=== PATIENT | male | born 1970 | race Caucasian/White ===

== ENCOUNTER → 2017-12-24 | Outpatient (CLI) | payer OTHER ==
[~2017-12-24] MED LIST: IOPAMIDOL (ISOVUE 370) 100 ML BTL IV ONE
== END ==
LOC: FIMAGING 13:51
PROVIDERS: ATTEND Internal Medicine Cardiovascular Disease
DX: I51.7 Cardiomegaly (principal); Q25.6 Stenosis of pulmonary artery; I28.8 Other diseases of pulmonary vessels
CPT/HCPCS: Q9967

== ENCOUNTER 2018-08-02 12:31 | Inpatient (IN) | payer OTHER ==
[2018-08-02] MEDS ORDERED: NS 1,000 ML IV ONE (12:38)
[2018-08-02] MEDS ORDERED: FAMOTIDINE 20 MG TAB PO ONE (12:38)
[2018-08-02] MEDS ORDERED: diphenhydrAMINE 25 MG CAP PO ONE ×2 (12:38→13:01)
[2018-08-02] MEDS ORDERED: DIAZEPAM 5 MG TAB PO ONE (12:38)
[2018-08-02] MEDS ORDERED: ASPIRIN EC 325 MG TAB PO ONE ×2 (12:38→13:01)
[2018-08-02] MEDS ORDERED: FAMOTIDINE 20 MG TAB ONE (13:01)
[2018-08-02] MEDS ORDERED: DIAZEPAM 5 MG TAB ONE (13:02)
[2018-08-02 13:30] LABS: PLATELET COUNT 184 10^3/uL (150-400)
[2018-08-02 13:41] LABS: INR 1.1 (0.83-1.16); PROTIME(PATIENT) 14.4 SEC (12.0-15.0)
[2018-08-02] MEDS ORDERED: fentaNYL 100 MCG/2 ML INJ ONE ×2 (13:43→15:12)
[2018-08-02] MEDS ORDERED: LIDOCAINE 1% 300 MG/30 ML SDV ONE (13:43)
[2018-08-02] MEDS ORDERED: MIDAZOLAM 2 MG/2 ML VIAL ONE ×3 (13:43→15:11)
[2018-08-02] MEDS ORDERED: VERAPAMIL 5 MG/2 ML VIAL ONE (13:44)
[2018-08-02] MEDS ORDERED: IOPAMIDOL (ISOVUE-370) 150 ML BTL IV ONE (13:44)
[2018-08-02] MEDS ORDERED: HEPARIN 10,000 UNIT/10 ML MDV (1,000 UNIT/ML) ONE (13:44)
--- NOTE | 2018-08-02 14:14 | PDGENHP ---
History & Physical Chief Complaint: I am ready to have my heart surgery History of Present Illness: 48 year old patient with severe PI and adult congenital heart disease with severe PI and dilation of the pulmonary artery precluding a transcatheter valve. Pertinent Past, Social, Family History: Pt is with young children. He does not smoke or abuse alcohol. Relevant Physical Exam: Regular rate rhythm and loud systolic and diasolic murmur. Lungs clear to auscultation. Extremities warm dry and well perfused. No cyanosis clubbing or edema. Cardiorespiratory Assessment: Please see above.
--- NOTE | 2018-08-02 14:15 | PDPROPOC ---
Sedation Plan of Care Sedation Plan of Care: vital signs stable, mental status noted, patient educated of risks, benefits, alternatives, patient can tolerate sedation ASA Classification: ASA 3 Planned drugs: fentanyl, midazolam Mallampati Score: Class 3 Mallampati Reference Image: Patient passed 3-3-2 rule?: Yes
--- NOTE | 2018-08-02 14:20 | PDDXCAT ---
Diagnostic Cath Note - . Date: 08/02/18 Airplane Electrician: Maria Isabel Indication: other (severe PI, adult congenital heart disease) - Procedure Access: right groin Procedure: coronary angiography, right heart catheterization, other (coronary catheterization, and ) - Materials Left Heart Cath size: 5F Left Heart Cath materials: JL4.0, JR4.0, pigtail Right Heart Cath size: 7F - Findings-Left Heart Catheterization LM: The left main is 8mm in size and trifurcates into a LAD, Circumflex and Ramus system. LAD: The left anterior descending is 3.5mm in size. There is no evidence of flow limiting disease. There is ELAINE III flow. LCX: The circumflex is 3mm in size. There is no evidence of coronary disease, dissection or thrombus. There is ELAINE III flow. RCA: The right coronary artery is 4mm in size and the dominant vessel. There is no evidence of atherosclerosis. THere is ELAINE III flow throughout Ramus: The ramus is 2mm in size. There is no flow limiting disease. There is ELAINE III flow. - Findings-Right Heart Catheterization RA: RV: PA: AO: 113//91 Complications: NONE Estimated blood loss: <50ml Closure method: Angioseal Assessment: The patient has a normal right dominant coronary system. The patient has moderate pulmonary hypertension that was unresponsive to a ramped dose vasodilator challenge with Adenosine at a max dose of 250mcg/kg/min. We were unable to perform left heart catheterization secondary to radial artery spasm so that procedure was abandoned. Theses results have been communicated to Dr. Li. Plan: The patient should be able to proceed with his pulmonic valve replacement. Intervention: NONE
[2018-08-02] MEDS ORDERED: ADENOSINE 90 MG/30 ML VIAL IV ONE ×2 (14:42→14:49)
[2018-08-02] MEDS ORDERED: ETOMIDATE 40 MG/20 ML INJ ONE (15:13)
[2018-08-02] MEDS ORDERED: ONDANSETRON 4 MG/2 ML VIAL IVP PRN (15:43)
[2018-08-02] MEDS ORDERED: OXYCODONE/APAP 5/325 TAB PO PRN (15:43)
[2018-08-02] MEDS ORDERED: NITROGLYCERIN 0.4 MG BTL SL PRN (15:43)
[2018-08-02] MEDS ORDERED: ATROPINE SULFATE 1 MG/10 ML SYR IVP PRN (15:43)
[2018-08-02] MEDS ORDERED: HYDROCODONE/APAP 5/325 TAB PO PRN (15:43)
--- NOTE | 2018-08-02 19:05 | PDGENHP ---
History and Physical - Chief Complaint complications of congenital heart disease - History of Present Illness 48 yo male with a hx of congenital pulmonic valve stenosis s/p repair at and repeat intervention at age 3, re-evaluated in November 2017 for atrial flutter and found to have severe PI (regurgitant fraction 47%) assoc with rt heart enlargement, moderate PA dilatation, moderate PHTN, mild biventricular systolic dysfx, mild to moderate TR, mild MR and mild AI. PI felt to be the instigating abnormality and referred for open PVR after determined to have unsuitable anatomy for a catheter based valve replacement. Admitted today to complete surgical risk stratification and cleared of CAD or prohibitive right heart pressures. Sinus rhythm was restored with DC CVSN (and beta blockade) and he has returned to his sedentary lifestyle without perceivable limitations or breathlessness. Is prone to mild ankle swelling with prolonged inactivity and has had a few bouts of palpitations, but not the pronounced racing like when he was in flutter. No wt gain, orthopnea, CPs, or presyncope. Eliquis for a [id number]-DDBm score of 2 has been well tolerated. Last dose 07/28. Bridged with Lovenox thru yest morning. History Information - Allergies/Home Medication List Allergies/Adverse Reactions: erythromycin base [From Erythrocin] Allergy (Verified 08/02/18 13:33) Other-Enter Comments Penicillins Allergy (Verified 08/02/18 20:28) Hives Home Medications: Apixaban [Eliquis] 5 mg PO BID 07/28/18 [Last Taken 07/28/18 20:00] Ibuprofen [Motrin (*)] 200 mg PO DAILY PRN 07/28/18 [Last Taken Unknown] Nebivolol HCl [Bystolic 5 mg (*)] 5 mg PO DAILY 07/28/18 [Last Taken 08/01/18 20 :00] Enoxaparin [Lovenox 100 MG (*)] 100 mg SQ Q12H 08/02/18 [Last Taken 08/01/18 08: 00] I have personally reviewed and updated: medical history, social history, surgical history - Past Medical History hypertension, liver disease ("scarring" s/p Rx for hep C), migraines, SVT ( atrial fib/flutter) Additional medical history: obesity. alopecia areata. 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 chronic venous insufficiency with mild dependent edema. sleep apnea suspected - Surgical History Additional surgical history: rt thoracotomy for pulmonic stenosis surgery 1967, [place], no records. 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, account executive software sales Review of Systems Review of Systems: ROS: 10pt was reviewed & negative except for what was stated in HPI & below Physical Exam Physical Exam: Temp Pulse Resp BP Pulse Ox 36.6 C 57 L 14 142/77 H 97 08/02/18 18:05 08/02/18 18:05 08/02/18 18:05 08/02/18 18:05 08/02/18 18:05 Constitutional: no apparent distress, appears nourished Eyes: anicteric sclera, other (PER) Ears, Nose, Mouth, Throat: moist mucous membranes, hearing normal, other (no visible dental disrepair) Cardiovascular: regular rate and rhythym, diastolic murmur, other (wide median sternotomy scar, and rt inframmary thoracotomy scar (spine to sternum)) Peripheral Pulses: 3+: dorsalis-pedis (R), dorsalis-pedis (L) Respiratory: clear to auscultation Gastrointestinal: soft, non-tender abdomen Skin: warm, other (skin changes of chronic venous insuff bilat low legs) Musculoskeletal: other (symmetric tone) Neurologic: AAOx3 Psychiatric: interacting appropriately, not anxious Lab Data & Imaging Review 08/02/18 12:50 08/03/18 03:53 WBC 5.01 10^3/uL (3.80-9.50) 08/02/18 12:50 RBC 4.87 10^6/uL (4.40-6.38) 08/02/18 12:50 Hgb 14.8 g/dL (13.7-17.5) 08/02/18 12:50 Hct 41.8 % (40.0-51.0) 08/02/18 12:50 MCV 85.8 fL (81.5-99.8) 08/02/18 12:50 MCH 30.4 pg (27.9-34.1) 08/02/18 12:50 MCHC 35.4 g/dL (32.4-36.7) 08/02/18 12:50 RDW 12.4 % (11.5-15.2) 08/02/18 12:50 Plt Count 184 10^3/uL (150-400) 08/02/18 12:50 MPV 9.7 fL (8.7-11.7) 08/02/18 12:50 Neut % (Auto) 65.0 % (39.3-74.2) 08/02/18 12:50 Lymph % (Auto) 18.0 % (15.0-45.0) 08/02/18 12:50 Hughes % (Auto) 13.4 % (4.5-13.0) H 08/02/18 12:50 Eos % (Auto) 2.6 % (0.6-7.6) 08/02/18 12:50 Baso % (Auto) 0.6 % (0.3-1.7) 08/02/18 12:50 Nucleat RBC Rel Count 0.0 % (0.0-0.2) 08/02/18 12:50 Absolute Neuts (auto) 3.26 10^3/uL (1.70-6.50) 08/02/18 12:50 Absolute Lymphs (auto) 0.90 10^3/uL (1.00-3.00) L 08/02/18 12:50 Absolute Monos (auto) 0.67 10^3/uL (0.30-0.80) 08/02/18 12:50 Absolute Eos (auto) 0.13 10^3/uL (0.03-0.40) 08/02/18 12:50 Absolute Basos (auto) 0.03 10^3/uL (0.02-0.10) 08/02/18 12:50 Absolute Nucleated RBC 0.00 10^3/uL (0-0.01) 08/02/18 12:50 Immature Gran % 0.4 % (0.0-1.1) 08/02/18 12:50 Immature Gran # 0.02 10^3/uL (0.00-0.10) 08/02/18 12:50 PT 14.4 SEC (12.0-15.0) 08/02/18 12:50 INR 1.10 (0.83-1.16) 08/02/18 12:50 Sodium 141 mEq/L (135-145) 08/02/18 12:50 Potassium 4.1 mEq/L (3.3-5.0) 08/02/18 12:50 Chloride 105 mEq/L (97-110) 08/02/18 12:50 Carbon Dioxide 26 mEq/l (22-31) 08/02/18 12:50 Anion Gap 10 mEq/L (6-14) 08/02/18 12:50 BUN 17 mg/dL (7-23) 08/02/18 12:50 Creatinine 1.0 mg/dL (0.7-1.3) 08/02/18 12:50 Estimated GFR > 60 08/02/18 12:50 Glucose 97 mg/dL (70-100) 08/02/18 12:50 Hemoglobin A1c 5.2 % (4.0-6.0) 08/02/18 12:50 Estim Average Glucose 103 mg/dL (68-126) 08/02/18 12:50 Calcium 9.7 mg/dL (8.5-10.4) 08/02/18 12:50 Magnesium 2.1 mg/dL (1.6-2.3) 08/02/18 12:50 Total Bilirubin 1.1 mg/dL (0.1-1.4) 08/02/18 12:50 Conjugated Bilirubin 0.1 mg/dL (0.0-0.5) 08/02/18 12:50 Unconjugated Bilirubin 1.0 mg/dL (0.0-1.1) 08/02/18 12:50 AST 52 IU/L (17-59) 08/02/18 12:50 ALT 60 IU/L (21-72) 08/02/18 12:50 Alkaline Phosphatase 52 IU/L (38-126) 08/02/18 12:50 Total Protein 8.0 g/dL (6.3-8.2) 08/02/18 12:50 Albumin 4.9 g/dL (3.5-5.0) 08/02/18 12:50 Triglycerides 94 mg/dL (40-150) 08/02/18 12:50 Cholesterol 180 mg/dL (140-220) 08/02/18 12:50 Cholesterol Risk Factr 0.8 (0.2-1.0) 08/02/18 12:50 LDL Cholesterol, Calc 117 mg/dL (80-100) H 08/02/18 12:50 LDL Risk Factor 1.0 (0.2-1.0) 08/02/18 12:50 VLDL Cholesterol 19 mg/dL (8-25) 08/02/18 12:50 Non-HDL Cholesterol 136 mg/dL (90-129) H 08/02/18 12:50 HDL Cholesterol 44 mg/dL (40-65) 08/02/18 12:50 LDL/HDL Ratio 2.66 RATIO (1.00-3.64) 08/02/18 12:50 Cholesterol/HDL Ratio 4.09 RATIO (1.00-4.97) 08/02/18 12:50 Patient ABO/Rh O POSITIVE 08/02/18 12:50 Antibody Screen NEGATIVE 08/02/18 12:50 Crossmatch IS Only See Detail 08/02/18 12:50 Imaging Review: R/LHC rt dom lacey system, no angiographic evidence CAD, PA 46/17 11/2017 CTA 34 mm main PA, 38 mm left PA, 29 mm right PA 12/2017 48 hr Holter occ PACs, occ PVCs, 5 runs of SVT c/w AF Visualized and Interpreted EKG results: Yes EKG Interpretation: Positive for: normal sinsus rhythm (68) Assessment & Plan Assessment: Severe pulmonic valve insufficiency Secondary tricuspid valve insufficiency Paroxysmal atrial arrhythmias Valvular cardiomyopathy Pulmonary hypertension with asymmetric dilatation of left PA Chronic anticoagulation Plan: Redo median sternotomy, PVR w porcine root to facilitate future perc options, TVA, exclusion of LA appendage, possible Vallecillo-Maze [address] Li
[2018-08-02] MEDS ORDERED: hydrALAZINE 20 MG/ML VIAL IVP PRN (19:10)
[2018-08-02] MEDS: MUPIROCIN 2% 22 GM OINT NS SCH (20:32)
[2018-08-02] MEDS ORDERED: SENNOSIDES/DOCUSATE SODIUM TAB PO SCH (21:00)
[2018-08-02] MEDS ORDERED: CHLORHEXIDINE GLUC HIBICLENS 118 ML BTL TP SCH (21:00)
[2018-08-03 04:18] LABS: INR 1.21 (0.83-1.16); PROTIME(PATIENT) 15.5 SEC (12.0-15.0)
[2018-08-03] MEDS ORDERED: ceFAZolin 2 GM/DEXTROSE 100 ML IV ONE (06:00)
[2018-08-03] MEDS ORDERED: MANNITOL 25% 12.5 GM/50 ML VIAL IVP ONE (06:00)
[2018-08-03] MEDS ORDERED: AMINOCAPROIC ACID 5 GM/20 ML VIAL IV ONE (06:00)
[2018-08-03] MEDS ORDERED: NOREPINEPHRINE BITARTRATE 16 MG in NS 250 ML IV ONE (06:00)
[2018-08-03] MEDS ORDERED: CITRATE DEXTROSE SOLN 500 ML BAG MISC ONE (06:00)
[2018-08-03] MEDS ORDERED: CARDIOPLEGIC SOLUTION 1,052.8 ML PF ONE (06:00)
[2018-08-03] MEDS ORDERED: PHENYLEPHRINE HCL 50 MG in NS 250 ML IV ONE (06:00)
[2018-08-03] MEDS ORDERED: MILRINONE/DEXTROSE 100 ML IV ONE (06:00)
[2018-08-03] MEDS ORDERED: INSULIN REGULAR HUMAN 100 UNIT in NS 100 ML IV ONE (06:00)
[2018-08-03] MEDS ORDERED: EPINEPHrine 8 MG in NS 250 ML IV ONE (06:00)
[2018-08-03] MEDS ORDERED: LR 1,000 ML IV ONE (06:12)
[2018-08-03] MEDS ORDERED: PROTAMINE SULFATE 50 MG/5 ML VIAL IVP ONE (06:31)
[2018-08-03] MEDS ORDERED: NA BICARBONATE 50 MEQ/50 ML VIAL ONE (06:32)
[2018-08-03] MEDS ORDERED: niCARdipine/NACL/200 ML BAG IV ONE (06:32)
[2018-08-03] MEDS ORDERED: MILRINONE/DEXTROSE/100 ML BAG IV ONE (06:32)
[2018-08-03] MEDS ORDERED: HEPARIN 10,000 UNIT/10 ML MDV (1,000 UNIT/ML) ONE ×2 (06:32→06:34)
[2018-08-03] MEDS ORDERED: DOPamine/DEXTROSE 400 MG/250 ML BAG IV ONE (06:32)
[2018-08-03] MEDS ORDERED: CALCIUM CHLORIDE 1 GM/10 ML INJ ONE ×2 (06:32→06:33)
[2018-08-03] MEDS ORDERED: AMIODARONE HCL 150 MG/3 ML VIAL ONE ×2 (06:32→06:34)
[2018-08-03] MEDS ORDERED: SODIUM BICARBONATE 50 MEQ/50 ML SYR ONE (06:33)
[2018-08-03] MEDS ORDERED: ADENOSINE 6 MG/2 ML VIAL ONE (06:33)
[2018-08-03] MEDS ORDERED: ALBUMIN 5% 250 ML BOTTLE IV ONE ×2 (06:33→15:15)
[2018-08-03] MEDS ORDERED: ceFAZolin 1 GM VIAL ONE (06:33)
[2018-08-03] MEDS ORDERED: NITROGLYCERIN/D5W 50 MG/250 ML BOTTLE IV ONE (06:33)
[2018-08-03] MEDS ORDERED: LIDOCAINE 2% 100 MG/5 ML SYR ONE (06:34)
[2018-08-03] MEDS ORDERED: methylPREDNISolone SOD SUCC 1 GM/8 ML VIAL ONE (06:34)
[2018-08-03] MEDS ORDERED: MAGNESIUM SULFATE 1 GM/2 ML VIAL ONE (06:34)
[2018-08-03] MEDS ORDERED: CITRATE DEXTROSE SOLN 500 ML BAG ONE (06:34)
[2018-08-03] MEDS: MUPIROCIN 2% 22 GM OINT NS SCH ×2 (06:39→21:16)
--- NOTE | 2018-08-03 06:46 | PDMN ---
Medical Necessity Medical necessity: Pt meets inpt criteria per MD order and [id number], Cardiac Valve Replacement or Repair, 5 days. 48 y/o w/hx congenital pulmonic valve stenosis (surgical intervention in childhood), now with severe pulmonic valve insufficiency, secondary tricuspid valve insufficiency, paroxysmal atrial arrhythmias, valvular cardiomyopathy, and pulm HTN will undergo redo median sternotomy, PVR, TVA, and possible Vallecillo-Maze 4.Est LOS>2MN for this surgery/post -op care.
[2018-08-03] MEDS ORDERED: MINERAL OIL 10 ML VIAL ONE (06:58)
[2018-08-03] MEDS ORDERED: MIDAZOLAM 2 MG/2 ML VIAL ONE ×2 (07:08→11:55)
[2018-08-03] MEDS ORDERED: MIDAZOLAM 2 MG/2 ML VIAL IVP ONE (07:08)
--- NOTE | 2018-08-03 07:10 | PDANEPAE ---
ANE History of Present Illness here for Re-do PVR ANE Past Medical History - Cardiovascular History Hx Hypertension: Yes Hx Arrhythmias: Yes Hx Chest Pain: No Hx Coronary Artery / Peripheral Vascular Disease: No Hx CHF / Valvular Disease: Yes Hx Palpitations: No Cardiovascular History Comment: Afib - Pulmonary History Hx COPD: No Hx Asthma/Reactive Airway Disease: No Hx Recent Upper Respiratory Infection: No Hx Oxygen in Use at Home: No Hx Sleep Apnea: No Sleep Apnea Screening Result - Last Documented: Positive Pulmonary History Comment: allergies - Neurologic History Hx Cerebrovascular Accident: No Hx Seizures: No Hx Dementia: No - Endocrine History Hx Diabetes: No - Renal History Hx Renal Disorders: No - Liver History Hx Hepatic Disorders: Yes Hepatic History Comment: Hep C with surgery treated now hep c free - Neurological & Psychiatric Hx Hx Neurological and Psychiatric Disorders: No - Cancer History Hx Cancer: No - Congenital Disorder History Hx Congenital Disorders: Yes Congenital History Comment: heart valve disease - GI History Hx Gastrointestinal Disorders: Yes Gastrointestinal History Comment: indigestion - Other Health History Other Health History: none - Chronic Pain History Chronic Pain: Yes (lower back pain) - Surgical History Prior Surgeries: 2 heart surgeries, one as and 3 yrs old ANE Review of Systems Review of systems is: negative Review of Systems: - Exercise capacity Exercise capacity: >=4 METS METS (RN): 3 METS ANE Patient History - Allergies Allergies/Adverse Reactions: erythromycin base [From Erythrocin] Allergy (Verified 08/02/18 13:33) Other-Enter Comments Penicillins Allergy (Verified 08/02/18 20:28) Hives - Home Medications Home medications: home medication list seen and reviewed Home Medications: Apixaban [Eliquis] 5 mg PO BID 07/28/18 [Last Taken 07/28/18 20:00] Ibuprofen [Motrin (*)] 200 mg PO DAILY PRN 07/28/18 [Last Taken Unknown] Nebivolol HCl [Bystolic 5 mg (*)] 5 mg PO DAILY 07/28/18 [Last Taken 08/01/18 20 :00] Enoxaparin [Lovenox 100 MG (*)] 100 mg SQ Q12H 08/02/18 [Last Taken 08/01/18 08: 00] - NPO status NPO Since - Liquids (Date): 08/03/18 NPO Since - Liquids (Time): 00:00 NPO Since - Solids (Date): 08/03/18 NPO Since - Solids (Time): 00:00 - Smoking Hx Smoking Status: Never smoked - Alcohol Use Alcohol Use: Occasionally (socially, wine and beer) - Family Anes Hx Family Hx Anesthesia Complications: none ANE Labs/Vital Signs - Labs Result Diagrams: 08/02/18 12:50 08/03/18 03:53 - Vital Signs Vital Signs: reviewed preoperatively; see RN documention for details Blood Pressure: 146/71 Heart Rate: 65 Respiratory Rate: 17 O2 Sat (%): 96 Height: 183 cm Weight: 95.7 kg ANE Physical Exam - Airway Neck exam: FROM Mallampati Score: Class 1 Mouth exam: normal dental/mouth exam - Pulmonary Pulmonary: no respiratory distress - Cardiovascular Cardiovascular: regular rate and rhythym - ASA Status ASA Status: III ANE Anesthesia Plan Anesthesia Plan: general endotracheal anesthesia Lines/Monitors: arterial line, central line, TALIA
[2018-08-03] MEDS ORDERED: KETAMINE 200 MG/20 ML VIAL ONE (07:13)
[2018-08-03] MEDS ORDERED: fentaNYL 250 MCG/5 ML INJ ONE ×2 (07:13→12:26)
[2018-08-03] MEDS ORDERED: PROPOFOL/EMULSION 500 MG/50 ML BOTTLE IV ONE (07:14)
[2018-08-03] MEDS ORDERED: ePHEDrine SULFATE 25 MG/5 ML SYR ONE (07:18)
[2018-08-03] MEDS ORDERED: PHENYLEPHRINE HCL 100 MCG/ML SYR ONE (07:18)
[2018-08-03] MEDS ORDERED: ROCURONIUM 100 MG/10 ML VIAL ONE (08:36)
[2018-08-03] MEDS ORDERED: NEBIVOLOL HCL 5 MG TAB PO SCH (09:00)
[2018-08-03] MEDS ORDERED: ROCURONIUM 50 MG/5 ML VIAL ONE (10:21)
[2018-08-03] MEDS ORDERED: THROMBIN(HUM PLAS)/FIBRINOG/CA 5 ML VIAL TP ONE (11:21)
[2018-08-03] MEDS ORDERED: DEXMEDETOMIDINE HCL 400 MCG in NS 100 ML IV SCH (12:00)
[2018-08-03] MEDS ORDERED: HYDROmorphONE/DILAUDID 2 MG/ML INJ ONE (12:25)
[2018-08-03] MEDS ORDERED: RANITIDINE 50 MG/2 ML VIAL ONE (15:16)
[2018-08-03] MEDS ORDERED: ACETAMINOPHEN 650 MG SUPP PR PRN (15:26)
[2018-08-03] MEDS ORDERED: ALBUMIN 5% 250 ML IV PRN (15:26)
[2018-08-03] MEDS ORDERED: ONDANSETRON DISINTEGRATING 4 MG TAB PO PRN (15:26)
[2018-08-03] MEDS ORDERED: BISACODYL 10 MG SUPP PR PRN (15:26)
[2018-08-03] MEDS ORDERED: MAGNESIUM HYDROXIDE 30 ML UDCUP PO PRN (15:26)
[2018-08-03] MEDS ORDERED: SODIUM CL NASAL 45 ML BTL EACHNARE PRN (15:26)
[2018-08-03] MEDS ORDERED: POLYETHYLENE GLYCOL 3350 17 GM PKT PO PRN (15:26)
[2018-08-03] MEDS ORDERED: METOCLOPRAMIDE 10 MG/2 ML VIAL IVP PRN (15:26)
[2018-08-03] MEDS ORDERED: PANTOPRAZOLE SODIUM 40 MG VIAL IVP ONE ×2 (15:26→19:15)
[2018-08-03] MEDS ORDERED: D50W 25 GM/50 ML SYR IVP PRN (15:26)
[2018-08-03] MEDS ORDERED: CEPACOL LOZENGE PO PRN (15:26)
[2018-08-03] MEDS ORDERED: fentaNYL 100 MCG/2 ML INJ IVP PRN (15:26)
[2018-08-03] MEDS ORDERED: ONDANSETRON 4 MG/2 ML VIAL IVP PRN (15:26)
[2018-08-03] MEDS ORDERED: LACTULOSE 20 GM/30 ML UDCUP PO PRN (15:26)
[2018-08-03] MEDS ORDERED: POTASSIUM Cl (KCl) 50 ML IV PRN (15:26)
[2018-08-03] MEDS ORDERED: MEPERIDINE 25 MG/0.5 ML AMP IVP PRN (15:26)
[2018-08-03] MEDS ORDERED: SUGAMMADEX SODIUM 200 MG/2 ML VIAL IVP ONE (15:28)
[2018-08-03] MEDS ORDERED: NOREPINEPHRINE BITARTRATE 16 MG in NS 250 ML IV SCH (15:30)
[2018-08-03] MEDS ORDERED: NS 1,000 ML IV SCH (15:30)
[2018-08-03] MEDS ORDERED: INSULIN REGULAR HUMAN 100 UNIT in NS 100 ML IV SCH (15:30)
--- NOTE | 2018-08-03 16:32 | CPEKG ---
Test Reason : OPEN Blood Pressure : / mmHG Vent. Rate : 068 BPM Atrial Rate : 068 BPM P-R Int : 138 ms QRS Dur : 102 ms QT Int : 444 ms P-R-T Axes : 035 072 054 degrees QTc Int : 473 ms Sinus rhythm Probable left atrial enlargement Consider inferior infarct Borderline ST depression, anterolateral leads Confirmed by Rik Hunter ([id number]) on 08/03/2018 4:31:52 PM Referred By: Confirmed By:Rik Hunter
--- NOTE | 2018-08-03 16:48 | CPEKG ---
Test Reason : OPEN Blood Pressure : / mmHG Vent. Rate : 075 BPM Atrial Rate : 075 BPM P-R Int : 194 ms QRS Dur : 094 ms QT Int : 428 ms P-R-T Axes : 066 074 122 degrees QTc Int : 479 ms Sinus rhythm Abnrm T, consider ischemia, anterolateral lds Confirmed by Rik Hunter ([id number]) on 08/03/2018 4:48:15 PM Referred By: Confirmed By:Rik Hunter
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
[2018-08-03] MEDS ORDERED: LIDOCAINE 1% 300 MG/30 ML SDV ONE (18:16)
--- NOTE | 2018-08-03 18:41 | PDCTREPORT ---
Cardiothoracic Procedure Rpt Cardiothoracic Procedure Report: Procedure: Placement left femoral arterial line, sterile technique, seldinger, no complications Indication: hemodynamic monitoring, unreliable radial shanna Patient Problems: Problems Problem Status Onset Acute blood loss anemia Acute Coagulopathy Acute Coronary artery disease (CAD) excluded Acute S/P aortic valve replacement with bioprosthetic valve Acute ~08/03/18 S/P left atrial appendage ligation Acute ~08/03/18 S/P pulmonary valve replacement with bioprosthetic valve Acute ~08/03/18 S/P tricuspid valve repair Acute ~08/03/18 Status post circumferential ablation of pulmonary vein Acute ~08/03/18 Chronic anticoagulation Chronic Dilatation of pulmonic artery Chronic Moderate aortic valve insufficiency Chronic Moderate tricuspid insufficiency Chronic Paroxysmal atrial fibrillation Chronic Pulmonary hypertension Chronic Severe pulmonary valve insufficiency Chronic Valvular cardiomyopathy Chronic
--- NOTE | 2018-08-03 19:18 | SUROPNOTE ---
[facility] Operative Report - Surgery Endotracheal Intubation Date and Time 08/03/181899 Operators S Brooks Sanchez MD Indication Respiratory failure, malfunctioning endotracheal tube (placed in the field) Consent Emergency procedure in a critically ill decompensating patient Preoxygenation mechanical ventilation Medications deep sedation with propofol and fentanyl as well as 100 mg lidocaine and vecuronium infusion Equipment Mac 3 7.5 ETT Gum elastic stylet Maccormick saunders grade view intubation 2 Number of Attempts 1 Description of procedure Due to issues with patient's intracranial ICP he was maintained in a semi recumbent position at approximately 45 degrees. After administering additional 50 mcg bolus of fentanyl and 100 mg of IV lidocaine, I proceed to stand behind and above the patient on the hospital bed frame. A Mac 3 laryngoscope blade was inserted into the patient's oropharynx. Significant pooled blood in the posterior oropharynx was noted and suctioned. Next the bougie was passed through the ET tube and the ET tube was removed. Subsequently, a 7.5 endotracheal tube with subglottic suctioning port was passed over the bougie with mild difficulties into the trachea. The endotracheal tube was secured at 24 cm at the teeth. A postprocedure chest x-ray confirmed appropriate placement and a persistent but stable right-sided apical pneumothorax Complications None
[2018-08-03] MEDS: ceFAZolin 2 GM/DEXTROSE 100 ML IV SCH (22:05)
[2018-08-04] MEDS: oxyCODONE IR 5 MG TAB PO PRN ×3 (03:12→11:01)
[2018-08-04] MEDS: ceFAZolin 2 GM/DEXTROSE 100 ML IV SCH ×3 (05:42→23:16)
[2018-08-04 05:58] LABS: PLATELET COUNT 76 10^3/uL (150-400)
--- NOTE | 2018-08-04 05:58 | GOP ---
DATE OF OPERATION: 08/03/2018 SURGEON: Ming Li DO LAND MANAGER: OTILIO Spence ANESTHESIOLOGIST: Luis Alberto Irwin MD PREOPERATIVE DIAGNOSIS: 1. Severe pulmonic insufficiency status disease status post 2 prior pulmonic procedures. 2. Moderate aortic insufficiency. 3. Moderate to severe tricuspid insufficiency. 4. Early persistent atrial fibrillation. POSTOPERATIVE DIAGNOSIS: 1. Severe pulmonic insufficiency status disease status post 2 prior pulmonic procedures. 2. Moderate aortic insufficiency. 3. Moderate to severe tricuspid insufficiency. 4. Early persistent atrial fibrillation. PROCEDURE PERFORMED: 1. Pulmonary outflow tract reconstruction with a 23 mm Freestyle bioprosthetic root. 2. Aortic valve replacement with a #25 Inspiris bioprosthetic valve. 3. Tricuspid valve annuloplasty with a #28 Christiano-Engel ring. 4. Pulmonary vein ablation to the left pulmonary veins as well as across the Coumadin ridge and through the atrial appendage. 5. AtriClip to left atrial appendage. 6. Left common femoral artery and vein cannulation with primary repair of the femoral artery. FINDINGS: DESCRIPTION OF PROCEDURE: The patient had severe pulmonic insufficiency not amenable to percutaneous treatment. He also had moderate aortic insufficiency, moderate tricuspid insufficiency, marked right ventricular and atrial enlargement with moderate LV and RV dysfunction. He also had early persistent atrial fibrillation. He was consented for a third time reoperation. Brought to the operating room, intubated. Monitoring lines were placed. He was prepped and draped in a sterile classical manner. Because the pericardium did not appear to be intact and his very large RV was plastered against the back of the sternum on CT scan, we exposed his right common femoral artery and vein. We then fully heparinized him and then cannulated both under echo guidance. We then used an oscillating saw to begin opening the sternum. We encountered some probably RV vessel bleeding. He went on cardiopulmonary bypass to decompress the heart and further opened the sternum without incident. The small vessels on the RV free wall were oversewn without difficulty. The RV appeared to be performing well regardless. We then spent at a little time freeing up the edges of the sternum. I then weaned him off bypass in order to preserve bypass time since this would have been a rather complex dissection as a third operation. We then spent several hours freeing up the entire heart circumferentially. We placed an additional 24 right angle cannula in the superior vena cava with caval tapes in anticipation of doing the maze and tricuspid valve. We then arrested the heart with antegrade cardioplegia; however, the aortic valve was incompetent enough that I was not satisfied we had adequate protection. We then performed an aortotomy and administered del Nido solution directly down the coronary ostia every 40 minutes or so as well as topical hypothermia and systemic cooling. We then spent some time freeing up the left side of the heart and exposing the pulmonary artery. There was evidence of previous surgery in the pulmonary outflow tract. We then initially opened the pulmonary artery transversely above the valve and inspected the valve. The leaflets were retracted and essentially atrophied. We then sized the patient for a 23 Freestyle valve which would allow him to get a later Ankita valve if necessary and used a continuous running 3-0 Prolene suture to anastomose the proximal anastomosis and distal anastomosis, reinforced with BioGlue. We then addressed the aortic valve, which I felt was too incompetent to leave, particularly with the diminished LV. For that reason, we placed a 25 mm Inspiris valve in the supra-annular position with interrupted 2-0 Ti-Cron pledgeted mattress sutures. Aortotomy was closed in a 2-layer fashion. Rewarming was begun, and we were able to give an additional dose of del Nido solution antegrade. We then exposed the left pulmonary veins, which I was able to encircle and place a clamp and ablate with multiple overlapping lesions all less than 5 seconds for the 3 overlapping lesions. I tried to expose the interatrial groove; however, due to his previous right thoracotomy exposure and dense adhesions I was unable to safely expose the interatrial groove, and I felt that further dissection would necessarily prolong the operation and that we would abort doing the remainder of the maze procedure. We then exposed the tricuspid valve with circumferential sutures and a #28 mm ring and secured that without evidence of regurgitation at completion. The atriotomy was closed. The cross-clamp had been removed for this portion of it. Spontaneous cardiac activity was noted to resume. The patient was then de-aired. We rested him on pump for some time. He then was weaned from bypass. The heparin was reversed with protamine. The cannula was removed from the groin and I had to primarily repair the femoral artery with 5-0 Prolene sutures. Doppler was intact distally as well as pedally. That groin was closed. We then spent several hours controlling coagulopathy, and given time we corrected that without incident. He had no remaining pericardium to place across the front of his heart. I then put 2 ventricular pacing wires, 2 mediastinal and 1 left pleural drain. After satisfied with hemostasis, the sternum was closed in a standard fashion. Intraoperative ATLIA confirmed by Dr. Nicolas revealed no pulmonic insufficiency with good outflow and no significant aortic insufficiency or tricuspid insufficiency with preserved biventricular function. The patient was then returned to the ICU in stable condition. CARDIOLOGY: Marques Nicolas MD /[id number]/MODL MTDD
[2018-08-04] MEDS ORDERED: HEPARIN 5,000 UNIT/0.5 ML INJ SC SCH (06:00)
[2018-08-04 06:02] LABS: INR 1.28 (0.83-1.16); PROTIME(PATIENT) 16.2 SEC (12.0-15.0)
--- NOTE | 2018-08-04 06:54 | SOAPPROG ---
SOAP Progress Note Assessment/Plan: POD # 1 R-S, pulmonary outflow tract reconstruction with 23mm freestyle bioprosthetic root; AVR #25 (tissue), TVA #28 , PVI with atriclip MARK, left common femoral artery and vein cannulation with primary repair of femoral artery , placement of femoral arterial line Severe pulmonic insufficiency status post 2 prior pulmonic procedures s/p PVR - normal EF pre-op. off pressors. MAP 62-75. ASA. Moderate AI s/p AVR -see above Moderate-Severe TR s/p TVA - see above Early persistent afib s/p PVI c MARK - pre-op CHADSVASC score of 2 on Eliquis. Will transition to Coumadin per Vallecillo-Maze protocol and dc Eliquis. NSR. HR 63-72 overnight, hold BB for afib ppx given low heart reate. Acute blood loss anemia with thrombocytopenia - transfused 4 FFP, 2 plt. Expected given redo procedure, monitor H/H 8.4 & 24.4. May be the source of his dizziness. Prerenal oliguria - Cr 1.1. UOP 340/310. K+ 5.0. Up 1 L. Plan Lasix 20 mg IV once Chest tubes to bulbs Transfer to PCU Subjective: Feels dizzy. Femoral art line placed last night. Objective: Vital Signs Temp Pulse Resp BP Pulse Ox 37.1 C 67 15 114/55 L 96 08/04/18 00:00 08/04/18 05:00 08/04/18 05:00 08/04/18 05:00 08/04/18 05:00 Laboratory Results 08/04/18 05:30 08/04/18 05:30 08/03/18 08/04/18 08/05/18 05:59 05:59 05:59 Intake Total 800 1242 Output Total 1385 Balance 800 -143 PT 16.2 SEC (12.0-15.0) H 08/04/18 05:30 INR 1.28 (0.83-1.16) H 08/04/18 05:30 General: NAD, sitting upright in chair HEENT: CVL IJ, MMM Respiratory: nasal cannula oxygen 2.5L, no wheezes Cardiac: NSR, no m/r/g, no edema GI: soft, nt, nd : phillips Extremities: femoral art line Incisions: sternum CDI Chest tubes: 575/160 serosang no airleak CXR - congested ICD10 Worksheet Patient Problems: Problems Problem Status Onset Acute blood loss anemia Acute Coagulopathy Acute Coronary artery disease (CAD) excluded Acute S/P aortic valve replacement with bioprosthetic valve Acute ~08/03/18 S/P left atrial appendage ligation Acute ~08/03/18 S/P pulmonary valve replacement with bioprosthetic valve Acute ~08/03/18 S/P tricuspid valve repair Acute ~08/03/18 Status post circumferential ablation of pulmonary vein Acute ~08/03/18 Chronic anticoagulation Chronic Dilatation of pulmonic artery Chronic Moderate aortic valve insufficiency Chronic Moderate tricuspid insufficiency Chronic Paroxysmal atrial fibrillation Chronic Pulmonary hypertension Chronic Severe pulmonary valve insufficiency Chronic Valvular cardiomyopathy Chronic
[2018-08-04] MEDS ORDERED: FUROSEMIDE 20 MG/2 ML VIAL IVP ONE (07:23)
[2018-08-04] MEDS ORDERED: ACETAMINOPHEN 325 MG TAB PO PRN (07:44)
[2018-08-04] MEDS ORDERED: HYDROCODONE/APAP 5/325 TAB PO PRN (07:44)
[2018-08-04] MEDS: PANTOPRAZOLE SODIUM 40 MG TAB PO SCH (08:41)
[2018-08-04] MEDS: ASPIRIN 81 MG CHEWABLE TAB PO SCH (08:41)
[2018-08-04] MEDS ORDERED: ASPIRIN 81 MG CHEWABLE TAB TUBE PRN (09:00)
[2018-08-04] MEDS: traMADol 50 MG TAB PO PRN (09:56)
[2018-08-04] MEDS: ACETAMINOPHEN 500 MG TAB TUBE SCH ×2 (09:59→10:01)
[2018-08-04] MEDS: MUPIROCIN 2% 22 GM OINT NS SCH ×2 (10:00→23:16)
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
[2018-08-04] MEDS: KETOROLAC 30 MG/1 ML SDV IVP PRN ×2 (14:17→20:12)
[2018-08-04] MEDS: ACETAMINOPHEN 500 MG TAB PO SCH ×2 (14:22→17:12)
--- NOTE | 2018-08-04 16:42 | POSTANESTH ---
Post Anesthetic Evaluation Cardiovascular Status: Normal, Stable Respiratory Status: Normal, Stable Level of Consciousness/Mental Status: Can Participate in Eval Pain Control: Adequate, Prn Tx Ordered Nausea/Vomiting Control: Adequate, Prn Tx Ordered Complications Possibly Related to Anesthesia: None Noted
[2018-08-04] MEDS ORDERED: NS 1,000 ML IV SCH (19:00)
[2018-08-04] MEDS ORDERED: ALBUTEROL 60 PUFFS/8 GM MDI IH ONE (22:20)
[2018-08-04] MEDS ORDERED: ALBUTEROL 60 PUFFS/8 GM MDI IH PRN (22:31)
[2018-08-05] MEDS: ACETAMINOPHEN 500 MG TAB PO SCH ×4 (01:34→17:11)
[2018-08-05 05:22] LABS: PLATELET COUNT 77 10^3/uL (150-400)
[2018-08-05 05:30] LABS: INR 1.17 (0.83-1.16); PROTIME(PATIENT) 15.1 SEC (12.0-15.0)
[2018-08-05] MEDS: ceFAZolin 2 GM/DEXTROSE 100 ML IV SCH (05:49)
[2018-08-05] MEDS: ASPIRIN 81 MG CHEWABLE TAB PO SCH (08:07)
[2018-08-05] MEDS: oxyCODONE IR 5 MG TAB PO PRN ×2 (08:08→20:53)
[2018-08-05] MEDS: PANTOPRAZOLE SODIUM 40 MG TAB PO SCH (08:08)
--- NOTE | 2018-08-05 08:09 | SOAPPROG ---
SOAP Progress Note Assessment/Plan: POD # 2 R-S, pulmonary outflow tract reconstruction with 23mm freestyle bioprosthetic root; AVR #25 (tissue), TVA #28 , PVI with atriclip MARK, left common femoral artery and vein cannulation with primary repair of femoral artery , placement of femoral arterial line Severe pulmonic insufficiency status post 2 prior pulmonic procedures s/p PVR - normal EF pre-op. VSS. ASA. ECHO ordered. Moderate AI s/p AVR -see above Moderate-Severe TR s/p TVA - see above Early persistent afib s/p PVI c MARK - pre-op CHADSVASC score of 2 on Eliquis. Will transition to Coumadin per Vallecillo-Maze protocol today and dc Eliquis. NSR. Hold BB d/t low HR and (60-70s) with dizziness. Acute blood loss anemia with thrombocytopenia - POD 0 transfused 4 FFP, 2 plt; POD 1 transfused 1 pRBCs with appropriate response. No s/s bleeding. Prerenal oliguria - improved UOP last 3 shifts - 550/225/850, Cr. 1 Persistent post-operative dizziness - none preop, worse from seated to standing position. Initially thought to be hypovolemia and anemia. No improvement with IVF/pRBCs. He is taking Notus. Back pain - persistent d/t long surgery. Scheduled toradol. Plt 77. Cr 1 Plan Lasix 40 mg PO today for gentle diuresis Start coumadin 5 mg, INR ordered for tomorrow Neuro consult re: persistent dizziness Scheduled toradol Routine post-op ECHO ordered for today Anticipate chest tubes out tomorrow Subjective: Still has considerable dizziness and back pain. Objective: Vital Signs Temp Pulse Resp BP Pulse Ox 36.6 C 71 20 100/52 L 100 08/05/18 04:00 08/05/18 04:00 08/05/18 04:00 08/05/18 04:00 08/05/18 04:00 Laboratory Results 08/05/18 05:07 08/05/18 05:07 08/04/18 08/05/18 08/06/18 05:59 05:59 05:59 Intake Total 1242 3193 Output Total 1385 2265 Balance -143 928 PT 15.1 SEC (12.0-15.0) H 08/05/18 05:07 INR 1.17 (0.83-1.16) H 08/05/18 05:07 General: NAD, sitting upright in chair HEENT: CVL IJ, MMM Respiratory: nasal cannula oxygen, no wheezes Cardiac: NSR, no m/r/g, no edema Incisions: sternum CDI Chest tubes: 150/280/210 CXR - congested ICD10 Worksheet Patient Problems: Problems Problem Status Onset Acute blood loss anemia Acute Coagulopathy Acute Coronary artery disease (CAD) excluded Acute S/P aortic valve replacement with bioprosthetic valve Acute ~08/03/18 S/P left atrial appendage ligation Acute ~08/03/18 S/P pulmonary valve replacement with bioprosthetic valve Acute ~08/03/18 S/P tricuspid valve repair Acute ~08/03/18 Status post circumferential ablation of pulmonary vein Acute ~08/03/18 Chronic anticoagulation Chronic Dilatation of pulmonic artery Chronic Moderate aortic valve insufficiency Chronic Moderate tricuspid insufficiency Chronic Paroxysmal atrial fibrillation Chronic Pulmonary hypertension Chronic Severe pulmonary valve insufficiency Chronic Valvular cardiomyopathy Chronic
[2018-08-05] MEDS ORDERED: FUROSEMIDE 40 MG TAB PO ONE (09:20)
[2018-08-05] MEDS: traMADol 50 MG TAB PO PRN (09:49)
[2018-08-05] MEDS: MUPIROCIN 2% 22 GM OINT NS SCH (09:50)
[2018-08-05] MEDS: KETOROLAC 30 MG/1 ML SDV IVP SCH ×2 (11:53→17:11)
[2018-08-05] MEDS ORDERED: IOPAMIDOL (ISOVUE 370) 100 ML BTL IV ONE (12:11)
--- NOTE | 2018-08-05 15:24 | ASMTCMCOM ---
CM Note CM Note Notes: Pt is a 48 y/o man admitted for afib and pulm insufficiency. Pt has been having vision changes. Therapies have cleared pt to d/c home without any needs. CM available for changes. Plan: Independent Date Signed: 08/05/2018 03:23 PM Electronically Signed By:GERMAN Whaley
[2018-08-05] MEDS ORDERED: WARFARIN SODIUM 5 MG TAB PO ONE (16:00)
--- NOTE | 2018-08-05 18:06 | ECHO ---
[email or web address] [address] Main: [phone] Fax: Transthoracic Echocardiogram Name: IRWIN PALMA MR#: [id number] Study Date: 08/05/2018 Study Time: 02:33 PM Date of : 1970 Age: 48 year(s) Height: 182.9 cm (72 in.) Weight: 101.15 kg (223 lb.) BSA: 2.23 m2 Gender: Male Examination: Echo Indication: post op cardiac surgery Image Quality: Adequate Contrast: Requested by: Irwin Gan BP: / Heart Rate: Rhythm: Indication: post op cardiac surgery Procedure Staff Sales Development Consultant: Kristy Mejia [facility] Reading Physician: Jonathon Tao MD Requesting Provider: Conclusions: Normal size left ventricle. Concentric LV hypertrophy. Normal global systolic LV function. EF is 63 %. There is paradoxic septal motion suggestive of bundle branch block, paced cardiac rhythm, or prior cardiac surgery. Normal diastolic LV function. Septal dyskinesis. Mildly dilated right ventricle. The left atirum is borderline dilated. The right atrium is mildly dilated. Trivial mitral valve regurgitation. The aortic valve is a bioprosthesis. Normal functioning aortic valve prosthesis. The prosthetic aortic valve is normal. The orifice motion of the prosthetic aortic valve is normal. No prosthesis regurgitation. There is a tricuspid valve ring. Tricuspid valve prosthesis function is normal. The prosthetic tricuspid valve is normal. The orifice motion of the tricuspid prosthesis is normal. No prosthesis regurgitation. There is a pulmonic bioprosthesis. The pulmonic prosthesis function is normal. The prosthetic pulmonic valve is normal. No prosthesis regurgitation. The mean gradient is 16 mmhg with a peak velocity of 2.5 m/s. Normal size ascending aorta measuring 3.0 cm. No pericardial effusion. Patient: IRWIN PALMA Study Date: 08/05/2018 Page 1 of 3 02:33 PM Measurements: Chambers Valvular Assessment AV/MV Valvular Assessment TV/PV Normal Normal Normal Name Value Range Name Value Range Name Value Range Ao Bella (2D): 3.4 cm (1.4 cm-2.6 AV Vmax: 1.94 m/s (1 m/s-1.7 TV Vmax: 1.19 m/s (0.3 m/s-0.7 cm) m/s) m/s) IVSd (2D): 1.4 cm (0.6 cm-1.1 AV maxP mmHg ( - ) TV Vmean: 0.88 m/s ( - ) cm) AV meanP mmHg ( - ) TV PGmax: 6 mmHg ( - ) LVDd (2D): 5.5 cm (4.2 cm-5.9 LORI (VTI): 2.3 cm ( - ) TV PGmean: 3 mmHg ( - ) cm) MV E Vmax: 0.91 m/s ( - ) TV VTI: 44.60 cm ( - ) LVDs (2D): 3.6 cm (2.1 cm-4 MV A Vmax: 0.32 m/s ( - ) PV Vmax: 2.38 m/s (0.6 m/s-0.9 cm) MV E/A: 2.84 ( - ) m/s) LVPWd (2D): 1.4 cm (0.6 cm-1 cm) MV PHT: 0.062 s ( - ) PV Vmean: 1.88 m/s ( - ) LVOTd 2.3 cm 2.3 cm mm MVA (PHT): 3.5 s ( - ) PV PGmax: 23 mmHg ( - ) PV PGmean: 15 mmHg ( - ) LVEF (BP): 63 % (>=55 %) PV VTI: 57.10 cm ( - ) RVDd(2D): 3.4 cm (1.9 cm-3.8 cmmm) Continued Measurements: Chambers Valvular Assessment AV/MV Name Value Name Value LADs: 4.2 cm MV DecTime: 194 m/s LADs Lon.7 cm MV E' Septal: 0.09 m/s LA Area: 27.0 cm2 MV E/E' Septal: 10.30 LA Volume: 75 ml MV E/E' Lateral: 9.00 LA Volume Index: 33.6 ml/m2 RA Area: 33.4 cm2 Additional Vessels Name Value Ao Ascendin.0 cm Findings: Left Ventricle: Normal size left ventricle. Concentric LV hypertrophy. Normal global systolic LV function. EF is 63 %. There is paradoxic septal motion suggestive of bundle branch block, paced cardiac rhythm, or prior cardiac surgery. Normal diastolic LV function. Septal dyskinesis. Right Ventricle: Mildly dilated right ventricle. Normal RV function. Left Atrium: The left atirum is borderline dilated. Right Atrium: The right atrium is mildly dilated. Mitral Valve: The mitral valve is normal in appearance and function. Trivial mitral valve regurgitation. No mitral stenosis is present. Aortic Valve: The aortic valve is a bioprosthesis. Normal functioning aortic valve prosthesis. The prosthetic aortic valve is normal. The orifice motion of the prosthetic aortic valve is normal. No prosthesis regurgitation. Tricuspid Valve: There is a tricuspid valve ring. Tricuspid valve prosthesis function is normal. The prosthetic tricuspid valve is normal. The orifice motion of the tricuspid prosthesis is normal. No prosthesis regurgitation. Pulmonic Valve: There is a pulmonic bioprosthesis. The pulmonic prosthesis function is normal. The prosthetic pulmonic valve is normal. No prosthesis regurgitation. The mean gradient is 16 mmhg with a peak velocity of 2.5 m/s. Patient: IRWIN PALMA Study Date: 08/05/2018 Page 2 of 3 02:33 PM Aorta: The aorta is normal. Normal size aortic root measuring 3.4 cm. Normal size ascending aorta measuring 3.0 cm. IVC: Subcostal not well visualized due to bandages and tubes. Pericardium: No pericardial effusion. Exam Comments: Patient in chair, 2 days post op. (No Signature Object) Patient: IRWIN PALMA Study Date: 08/05/2018 Page 3 of 3 02:33 PM [id number]
[2018-08-05] MEDS: SENNOSIDES/DOCUSATE SODIUM TAB PO SCH (20:54)
[2018-08-06] MEDS: KETOROLAC 30 MG/1 ML SDV IVP SCH ×5 (00:03→23:57)
[2018-08-06] MEDS: ACETAMINOPHEN 500 MG TAB PO SCH ×5 (00:03→23:58)
[2018-08-06 06:14] LABS: INR 1.27 (0.83-1.16); PROTIME(PATIENT) 16.1 SEC (12.0-15.0)
[2018-08-06] MEDS: SENNOSIDES/DOCUSATE SODIUM TAB PO SCH ×2 (09:55→20:07)
[2018-08-06] MEDS: PANTOPRAZOLE SODIUM 40 MG TAB PO SCH (09:56)
[2018-08-06] MEDS: ASPIRIN 81 MG CHEWABLE TAB PO SCH (09:56)
[2018-08-06] MEDS: FUROSEMIDE 40 MG/4 ML VIAL IVP SCH ×2 (09:56→16:33)
[2018-08-06] MEDS: POTASSIUM CL 20 MEQ TAB PO SCH ×2 (09:56→20:06)
--- NOTE | 2018-08-06 11:17 | NEUROPROG ---
Assessment: [id number] - Neurology Consult: - CC: Dr. Li consulted neurology for dizziness. Results placed in EMR for his review. - HPI: Pt with recent cardiac surgery (congenital pulmonic stenosis correction) on 08/03. No complications but since surgery patient has reported feeling dizzy and noted some spots in his vision. A head CT and CTA head/neck obtained that day showed no acute changes. Neurology was consulted. I initially saw the patient on 08/06/18. Neurologic exam on 08/06/18 was nonfocal. Brain MRA wo ordered to assess for stroke and showed no ischemia or vessel abnormality. He felt his dizziness had resolved and his vision was improving. It did not appear he had any acute ischemia so this is likely a post-op process which is improving. No further recs at this time. Neurology will sign off but will be happy to return if symptoms change, worsen, or fail to resolve. 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 Oriented x person/place/date . concentration appears normal . speech fluency/comprehension normal . memory appears normal . fund of knowledge appear intact - Cranial Nerves: . II: PERRL, VFFTC . III/IV/: EOMI, no nystagmus, normal smooth pursuits, no Ptosis . V: facial sensation intact to LT . VII: face symmetric to eye closure and smile . VIII: hearing intact to conversation . IX/X: uvula raises symmetrically . XI: SCM 5/5 B/L strength . XII: tongue protrudes midline w/nl strength - Motor: . Tone: normal tone in all 4 extremity . Strength: no pronator drift, strength 5/5 throughout (B/L delt, bic, tri, hand funeral assistant, hf/he, df/pf) - Reflexes: B/L bic/BR/patella 2/4 - Sensory: all 4 extremity intact to light touch - Coord: [id number] wnl, CIARA wnl, [id number] wnl - Gait: deferred - Labs: 08/05/18- Na 140 - Rads: 08/05/18- Head CT wo: no acute intracranial process (I personally visualized the images on 08/05/18) 08/05/18- Head/neck CTA: unremarkable angiogram of head/neck - Assessment: 1. Dizziness since cardiac surgery on 08/03/18: Head CT and head/neck CTA on 08/05 showed no acute changes and brain MRA on 08/05/18 showed no ischemia (DWI imaging unremarkable) and no vessel abnormality. Neurologic exam on 08/06/18 was nonfocal. Symptoms improving so likely a post-op process which is self- limited. - Plan: - No further inpatient neurologic w/u needed, neurology will sign off but will be happy to return if symptoms change, worsen, or fail to resolve Objective: Vital Signs Temp Pulse Resp BP Pulse Ox 36.9 C 69 15 101/57 L 99 08/06/18 07:18 08/06/18 07:18 08/06/18 07:18 08/06/18 07:18 08/06/18 07:18 Laboratory Results 08/05/18 05:07 08/05/18 05:07 08/05/18 08/06/18 08/07/18 05:59 05:59 05:59 Intake Total 3192 2600 Output Total 2269 1725 Balance 928 875 PT 16.1 SEC (12.0-15.0) H 08/06/18 05:50 INR 1.27 (0.83-1.16) H 08/06/18 05:50 Allergies/Adverse Reactions: erythromycin base [From Erythrocin] Allergy (Verified 08/02/18 13:33) Other-Enter Comments Penicillins Allergy (Verified 08/02/18 20:28) Hives
--- NOTE | 2018-08-06 15:40 | SOAPPROG ---
SOAP Progress Note Assessment/Plan: POD # 3 R-S, pulmonary outflow tract reconstruction with 23mm freestyle bioprosthetic root; AVR #25 (tissue), TVA #28 , PVI with atriclip MARK, left common femoral artery and vein cannulation with primary repair of femoral artery , placement of femoral arterial line Severe pulmonic insufficiency with history of 2 prior pulmonic procedures s/p PVR - Normal EF pre-op. Postop echo showed EF 63% a normally functioning pulmonic bioprosthesis with a mean gradient of 16, and a normally functioning aortic valve and tricuspid valve prosthesis. On ASA. Moderate AI s/p AVR -See above Moderate-Severe TR s/p TVA - See above Early persistent afib s/p PVI c MARK - Pre-op CHADSVASC score of 2 on Eliquis. Will transition to Coumadin per Vallecillo-Maze protocol today and dc Eliquis. NSR. Hold BB d/t low HR (60-70s) and to avoid hypotension. INR 1.27 (1.17). Coumadin 5mg today. Acute blood loss anemia with thrombocytopenia - POD 0 transfused 4 FFP, 2 plt; POD 1 transfused 1 pRBCs with appropriate response. No s/s bleeding. H&H 8.8/ 26.6 and plt 77k (76k). Pacing wires out. Leukocytosis- WBC 15.4 (10.4). Patient afebrile without Prerenal oliguria - Improved UOP. BUN 36/Cr 1.0. Net +875. Patient is up almost 8kg from preop weight. Lasix 40mg IV BID. Fluid restriction of 1.5L/ 24hrs. Persistent post-operative dizziness/ocular symptoms ("floaters") - Dizziness has resolved but floaters persist. Radiologic workup negative. Neurology evaluated patient and exam was non-focal. Back pain - D/t long surgery. Improving. On Toradol and Oxy IR. Plan Lasix 40 mg IV BID. Coumadin 5 mg today. D/c chest tubes Subjective: Patient reports improvement in dizziness but still complains of floaters. Pain is controlled with current regimen. Objective: Vital Signs Temp Pulse Resp BP Pulse Ox 36.9 C 75 19 93/50 L 98 08/06/18 12:00 08/06/18 12:00 12/08/18 12:00 08/06/18 12:00 08/06/18 12:00 Laboratory Results 08/05/18 05:07 08/05/18 05:07 08/05/18 08/06/18 08/07/18 05:59 05:59 05:59 Intake Total 3193 2600 Output Total 2265 1725 85 Balance 928 875 -85 PT 16.1 SEC (12.0-15.0) H 08/06/18 05:50 INR 1.27 (0.83-1.16) H 08/06/18 05:50 Physical Exam - Physical Exam General Appearance: WD/WN, alert Neck: supple Respiratory: lungs clear, decreased breath sounds (bases) Cardiac/Chest: regular rate, rhythm, other (+murmur. No rubs, gallops. Sternum stable. Sternotomy c/d/i. ) Abdomen: normal bowel sounds, non-tender, soft Skin: normal color, warm/dry Extremities: other (Warm, 1-2+ lower extremity pitting edema) Neuro/Psych: alert, normal mood/affect, oriented x 3 ICD10 Worksheet Patient Problems: Problems Problem Status Onset Acute blood loss anemia Acute Coagulopathy Acute Coronary artery disease (CAD) excluded Acute S/P aortic valve replacement with bioprosthetic valve Acute ~08/03/18 S/P left atrial appendage ligation Acute ~08/03/18 S/P pulmonary valve replacement with bioprosthetic valve Acute ~08/03/18 S/P tricuspid valve repair Acute ~08/03/18 Status post circumferential ablation of pulmonary vein Acute ~08/03/18 Chronic anticoagulation Chronic Dilatation of pulmonic artery Chronic Moderate aortic valve insufficiency Chronic Moderate tricuspid insufficiency Chronic Paroxysmal atrial fibrillation Chronic Pulmonary hypertension Chronic Severe pulmonary valve insufficiency Chronic Valvular cardiomyopathy Chronic
[2018-08-06] MEDS ORDERED: WARFARIN SODIUM 5 MG TAB PO ONE (16:00)
[2018-08-07] MEDS: ACETAMINOPHEN 500 MG TAB PO SCH ×3 (05:37→18:22)
[2018-08-07] MEDS: KETOROLAC 30 MG/1 ML SDV IVP SCH ×3 (05:39→18:21)
[2018-08-07 06:11] LABS: INR 1.69 (0.83-1.16)
[2018-08-07] MEDS: FUROSEMIDE 40 MG/4 ML VIAL IVP SCH ×2 (10:38→15:35)
[2018-08-07] MEDS: PANTOPRAZOLE SODIUM 40 MG TAB PO SCH (10:38)
[2018-08-07] MEDS: POTASSIUM CL 20 MEQ TAB PO SCH ×2 (10:38→20:17)
[2018-08-07] MEDS: SENNOSIDES/DOCUSATE SODIUM TAB PO SCH ×3 (10:38→20:17)
[2018-08-07] MEDS: ASPIRIN 81 MG CHEWABLE TAB PO SCH (10:39)
--- NOTE | 2018-08-07 13:46 | SOAPPROG ---
SOAP Progress Note Assessment/Plan: POD # 4 R-S, pulmonary outflow tract reconstruction with 23mm freestyle bioprosthetic root; AVR #25 (tissue), TVA #28 , PVI with atriclip MARK, left common femoral artery and vein cannulation with primary repair of femoral artery , placement of femoral arterial line Severe pulmonic insufficiency with history of 2 prior pulmonic procedures s/p PVR - Normal EF pre-op. Postop echo showed EF 63%, a normally functioning pulmonic bioprosthesis with a mean gradient of 16, and normally functioning aortic valve and tricuspid valve prostheses. On ASA. Chest tubes and pacing wires out. Moderate AI s/p AVR -See above Moderate-Severe TR s/p TVA - See above Early persistent afib s/p PVI c MARK - Pre-op CHADSVASC score of 2 on Eliquis. Transitioned to Coumadin per Vallecillo-Maze protocol and d/c'd Eliquis. Remains in NSR. Continue to hold BB to avoid hypotension. INR 1.69 (1.27). Coumadin 5mg today. Acute blood loss anemia- Transfused 1 PRBC postop. H&H down today at 7.5/22.9 ( 8.8/26.6). Will hold off on blood transfusion as patient is asymptomatic and hemodynamically stable. Will check CXR. Secondary thrombocytopenia d/t CPB- Transfused 2 plt postop. Plt 74k (77k). Will check HIT and continue to follow. Prerenal oliguria - Improved UOP. BUN 23/Cr 0.7. Net -1285mls/24hrs. Patient is up ~5kg from preop weight. Lasix 40mg IV BID. Continue fluid restriction of 1.5L/24hrs. Persistent post-operative dizziness/ocular symptoms ("floaters") - Dizziness has resolved but floaters persist. Radiologic workup negative. Neurology evaluated patient and exam was non-focal. Back pain - D/t long surgery. Stable. Deconditioning s/p surgery- Continue PT/OT. Encourage ambulation/IS. Plan Continue Lasix 40 mg IV BID. Coumadin 5 mg today. Subjective: Patient reports feeling nauseous this am. Denies vomiting or abdominal pain. Patient also reports pain in the area where the chest tubes were removed. Objective: Vital Signs Temp Pulse Resp BP Pulse Ox 36.7 C 63 18 103/56 L 99 08/07/18 11:20 08/07/18 11:20 08/07/18 11:20 08/07/18 11:20 08/07/18 11:20 Laboratory Results 08/07/18 10:50 08/07/18 10:50 08/06/18 08/07/18 08/08/18 05:59 05:59 05:59 Intake Total 2600 650 Output Total 1725 1935 1350 Balance 875 -1285 -1350 PT 20.0 SEC (12.0-15.0) H 08/07/18 05:45 INR 1.69 (0.83-1.16) H 08/07/18 05:45 Physical Exam - Physical Exam General Appearance: WD/WN, alert, no apparent distress Neck: supple Respiratory: lungs clear, decreased breath sounds (bases.), other (no wheezing, rhonchi, rales. ) Cardiac/Chest: regular rate, rhythm, other (+mumur. no rubs or gallops. sternum stable. sternotomy c/d/i. ) Abdomen: normal bowel sounds, non-tender, soft Skin: normal color, warm/dry Extremities: other (warm, 1-2+ lower extremity pitting edema) Neuro/Psych: alert, normal mood/affect, oriented x 3 ICD10 Worksheet Patient Problems: Problems Problem Status Onset Acute blood loss anemia Acute Coagulopathy Acute Coronary artery disease (CAD) excluded Acute S/P aortic valve replacement with bioprosthetic valve Acute ~08/03/18 S/P left atrial appendage ligation Acute ~08/03/18 S/P pulmonary valve replacement with bioprosthetic valve Acute ~08/03/18 S/P tricuspid valve repair Acute ~08/03/18 Status post circumferential ablation of pulmonary vein Acute ~08/03/18 Chronic anticoagulation Chronic Dilatation of pulmonic artery Chronic Moderate aortic valve insufficiency Chronic Moderate tricuspid insufficiency Chronic Paroxysmal atrial fibrillation Chronic Pulmonary hypertension Chronic Severe pulmonary valve insufficiency Chronic Valvular cardiomyopathy Chronic
[2018-08-07] MEDS ORDERED: WARFARIN SODIUM 5 MG TAB PO ONE (16:00)
[2018-08-07] MEDS: oxyCODONE IR 5 MG TAB PO PRN (16:35)
[2018-08-08] MEDS: ACETAMINOPHEN 500 MG TAB PO SCH ×4 (00:08→20:55)
[2018-08-08] MEDS: KETOROLAC 30 MG/1 ML SDV IVP SCH ×2 (00:08→05:15)
[2018-08-08 05:43] LABS: INR 1.81 (0.83-1.16); PROTIME(PATIENT) 21.1 SEC (12.0-15.0)
--- NOTE | 2018-08-08 07:15 | SOAPPROG ---
SOAP Progress Note Assessment/Plan: POD: #5 R-S, pulmonary outflow tract reconstruction with 23mm freestyle bioprosthetic root; AVR #25 (tissue), TVA #28 , PVI with atriclip MARK, left common femoral artery and vein cannulation with primary repair of femoral artery , placement of femoral arterial line Severe pulmonic insufficiency with history of 2 prior pulmonic procedures s/p PVR - Normal EF pre-op. Postop echo showed EF 63%, a normally functioning pulmonic bioprosthesis with a mean gradient of 16, and normally functioning aortic valve and tricuspid valve prostheses. On ASA. Chest tubes and pacing wires out. Moderate AI s/p AVR -See above Moderate-Severe TR s/p TVA - See above Early persistent afib s/p PVI c MARK - Pre-op CHADSVASC score of 2 on Eliquis. Transitioned to Coumadin per Vallecillo-Maze protocol and d/c'd Eliquis. Remains in NSR. Continue to hold BB to avoid hypotension. Acute blood loss anemia- Transfused 1 PRBC postop. Remains anemic. Will hold off on blood transfusion as patient is asymptomatic and hemodynamically stable. Secondary thrombocytopenia d/t CPB- Transfused 2 plt postop. Platelets rebounding. Post-operative dizziness/ocular symptoms ("floaters") - Resolved. Negative workup for CVA. DVT prophylaxis - Coumadin/SCDs. Disposition - likely home Wednesday. Subjective: Feels well. Pain well-controlled. Denies SOB. Objective: Vital Signs Temp Pulse Resp BP Pulse Ox 37.2 C 101 H 17 98/58 L 83 L 08/08/18 04:00 08/08/18 05:45 08/08/18 04:00 08/08/18 04:00 08/08/18 05:45 Laboratory Results 08/08/18 05:20 08/08/18 05:20 08/07/18 08/08/18 08/09/18 05:59 05:59 05:59 Intake Total 650 900 Output Total 1935 2295 Balance -1285 -1395 PT 21.1 SEC (12.0-15.0) H 08/08/18 05:20 INR 1.81 (0.83-1.16) H 08/08/18 05:20 Physical Exam - Physical Exam General Appearance: WD/WN, alert, no apparent distress EENT: No scleral icterus (R), No scleral icterus (L) Neck: normal inspection Respiratory: No respiratory distress Cardiac/Chest: regular rate, rhythm Abdomen: non-tender, soft, No distended Skin: normal color, warm/dry Extremities: No pedal edema Neuro/Psych: no motor/sensory deficits, alert, normal mood/affect, oriented x 3 ICD10 Worksheet Patient Problems: Problems Problem Status Onset Acute blood loss anemia Acute Coagulopathy Acute Coronary artery disease (CAD) excluded Acute S/P aortic valve replacement with bioprosthetic valve Acute ~08/03/18 S/P left atrial appendage ligation Acute ~08/03/18 S/P pulmonary valve replacement with bioprosthetic valve Acute ~08/03/18 S/P tricuspid valve repair Acute ~08/03/18 Status post circumferential ablation of pulmonary vein Acute ~08/03/18 Chronic anticoagulation Chronic Dilatation of pulmonic artery Chronic Moderate aortic valve insufficiency Chronic Moderate tricuspid insufficiency Chronic Paroxysmal atrial fibrillation Chronic Pulmonary hypertension Chronic Severe pulmonary valve insufficiency Chronic Valvular cardiomyopathy Chronic
[2018-08-08] MEDS: SENNOSIDES/DOCUSATE SODIUM TAB PO SCH ×2 (10:04→20:54)
[2018-08-08] MEDS: ASPIRIN 81 MG CHEWABLE TAB PO SCH (10:05)
[2018-08-08] MEDS: PANTOPRAZOLE SODIUM 40 MG TAB PO SCH (10:05)
[2018-08-08] MEDS: POTASSIUM CL 20 MEQ TAB PO SCH ×2 (10:05→20:54)
[2018-08-08] MEDS: FUROSEMIDE 40 MG/4 ML VIAL IVP SCH (10:10)
[2018-08-08] MEDS ORDERED: FUROSEMIDE 20 MG/2 ML VIAL ONE (10:15)
[2018-08-08] MEDS ORDERED: FUROSEMIDE 40 MG/4 ML VIAL ONE (10:17)
[2018-08-08] MEDS: FUROSEMIDE 40 MG TAB PO SCH (15:31)
[2018-08-08] MEDS ORDERED: WARFARIN SODIUM 5 MG TAB PO ONE (16:00)
[2018-08-09] MEDS: ACETAMINOPHEN 500 MG TAB PO SCH ×2 (02:46→09:47)
[2018-08-09 03:49] LABS: INR 1.99 (0.83-1.16); PROTIME(PATIENT) 22.7 SEC (12.0-15.0)
--- NOTE | 2018-08-09 08:26 | SOAPPROG ---
SOAP Progress Note Assessment/Plan: POD: #6 R-S, pulmonary outflow tract reconstruction with 23mm freestyle bioprosthetic root; AVR #25 (tissue), TVA #28 , PVI with atriclip MARK, left common femoral artery and vein cannulation with primary repair of femoral artery , placement of femoral arterial line Severe pulmonic insufficiency with history of 2 prior pulmonic procedures s/p PVR - Normal EF pre-op. Postop echo showed EF 63%, a normally functioning pulmonic bioprosthesis with a mean gradient of 16, and normally functioning aortic valve and tricuspid valve prostheses. On ASA. Chest tubes and pacing wires out. Moderate AI s/p AVR -See above Moderate-Severe TR s/p TVA - See above Early persistent afib s/p PVI c MARK - Pre-op CHADSVASC score of 2 on Eliquis. Transitioned to Coumadin per Vallecillo-Maze protocol and d/c'd Eliquis. Remains in NSR. Continue to hold BB to avoid hypotension. Acute blood loss anemia- Transfused 1 PRBC postop. Remains anemic. Will hold off on blood transfusion as patient is asymptomatic and hemodynamically stable. Secondary thrombocytopenia d/t CPB- Transfused 2 plt postop. PF4 ordered over the weekend and pending. Unlikely given platelets rebounded. Post-operative dizziness/ocular symptoms ("floaters") - Resolved. Negative workup for CVA. DVT prophylaxis - Coumadin/SCDs. Disposition Home today without services Home oxygen Subjective: Ready to go home today Objective: Vital Signs Temp Pulse Resp BP Pulse Ox 36.9 C 91 18 99/66 L 95 08/09/18 08:00 08/09/18 08:00 08/09/18 08:00 08/09/18 08:00 08/09/18 08:00 Laboratory Results 08/08/18 05:20 08/08/18 05:20 08/08/18 08/09/18 08/10/18 05:59 05:59 05:59 Intake Total 900 1150 Output Total 2295 2225 350 Balance -1395 -1075 -350 PT 22.7 SEC (12.0-15.0) H 08/09/18 03:20 INR 1.99 (0.83-1.16) H 08/09/18 03:20 - Physical Exam General Appearance: WD/WN, alert, no apparent distress EENT: No scleral icterus (R), No scleral icterus (L) Neck: normal inspection Respiratory: No respiratory distress Cardiac/Chest: regular rate, rhythm, chest CDI, right groin CDI Abdomen: non-tender, soft, No distended Skin: normal color, warm/dry Extremities: No pedal edema Neuro/Psych: no motor/sensory deficits, alert, normal mood/affect, oriented x 3 ICD10 Worksheet Patient Problems: Problems Problem Status Onset Acute blood loss anemia Acute Coagulopathy Acute Coronary artery disease (CAD) excluded Acute S/P aortic valve replacement with bioprosthetic valve Acute ~08/03/18 S/P left atrial appendage ligation Acute ~08/03/18 S/P pulmonary valve replacement with bioprosthetic valve Acute ~08/03/18 S/P tricuspid valve repair Acute ~08/03/18 Status post circumferential ablation of pulmonary vein Acute ~08/03/18 Chronic anticoagulation Chronic Dilatation of pulmonic artery Chronic Moderate aortic valve insufficiency Chronic Moderate tricuspid insufficiency Chronic Paroxysmal atrial fibrillation Chronic Pulmonary hypertension Chronic Severe pulmonary valve insufficiency Chronic Valvular cardiomyopathy Chronic
--- NOTE | 2018-08-09 08:39 | PDHOMEO2F ---
Home Oxygen Face to Face Home Orders: I certify that a physician or a nurse practitioner or physician's assistant front end manager has had a [id number] encounter with this patient on the date of this order due to the diagnosis listed, which relates to the primary reason the patient requires home oxygen. Alternative treatments have been tried, or considered, and deemed ineffective. It is anticipated that supplemental oxygen will result in improvement with treatment. Home oxygen qualifying diagnosis: s/p redo sternotomy PVR, TVA, afib, effusion SpO2 on room air (%): 85% Frequency of home oxygen needed: continuous Home oxygen liters per minute: 2 LPM Home oxygen delivery device: nasal cannula Concentrator: Yes E-tanks for mobility and back up: Yes If ordering portable O2, is the patient mobile in the home?: Yes I certify that, based on these findings, the home oxygen is medically necessary for this patient for the following length of time. Length of time home oxygen needed: 1 month
--- NOTE | 2018-08-09 09:17 | PDDCSUM ---
Discharge Summary Discharge Summary: DATE OF ADMISSION: 08/02/18 DATE OF DISCHARGE: 08/09/18 DISPOSITION: Home with Oxygen ACTIVITY: Instructed on sternal precautions, activity restrictions, and problems to call [facility]. ADMISSION DIAGNOSES: Severe pulmonic insufficiency s/p x2 previous pulmonic procedures Moderate aortic insufficiency Moderate to severe tricuspid insufficiency Early persistent atrial fibrillation DISCHARGE DIAGNOSES: As above plus, Dizziness with ocular floaters, workup negative for CVA/exam non-focal Acute blood loss anemia with thrombocytopenia PROCEDURES PERFORMED: 08/03/18, Dr. Li Redo sternotomy, pulmonary outflow tract reconstruction with 23 mm Freestyle bioprosthetic root. AVR with #25 Inspiris bioprosthetic valve. Tricuspid valve annuloplasty with #28 Christiano-Engel ring. Pulmonary vein ablation to the left pulmonary veins as well as across the coumadin ridge and through the atrial appendage. Atriclip to left atrial appendage. Left common femoral artery and vein cannulation with primary repair of femoral artery. 08/05/18, Transthoracic echocardiogram No AV, TV, or PV regurgitation. 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 PI felt to be the instigating abnormality and referred for open PVR after determined to have unsuitable anatomy for a catheter based valve replacement. Cleared of CAD or prohibitive right heart pressures. Sinus rhythm was restored with DC CVSN (and beta blockade ) and he has returned to his sedentary lifestyle without perceivable limitations or breathlessness. Is prone to mild ankle swelling with prolonged inactivity and has had a few bouts of palpitations, but not the pronounced racing like when he was in flutter. No wt gain, orthopnea, CPs, or presyncope. Eliquis for a [id number] score of 2 has been well tolerated. HOSPITAL COURSE BY PROBLEM LIST: Severe pulmonic insufficiency s/p PVR - Normal EF pre-op. Postop echo showed EF 63%, a normally functioning pulmonic bioprosthesis with a mean gradient of 16, and normally functioning aortic valve and tricuspid valve prostheses. Moderate AI s/p AVR & Moderate to Severe TR s/p TVA -See above Early persistent afib s/p PVI c MARK - Pre-op CHADSVASC score of 2 on Eliquis. Transitioned to Coumadin per Vallecillo-Maze protocol and d/c'd Eliquis. Remained in NSR. BB held due to hypotension. Acute blood loss anemia with thrombocytopenia - Transfused 1 PRBC, 2 plt postop. Concern for possible HIT. PF4 was . Post-operative dizziness/ocular symptoms ("floaters") - Resolved. Negative workup for CVA. Seen by Dr. Estrella of Neurology and exam was nonfocal. PERTINENT DISCHARGE CLINICAL INFORMATION: Sternotomy stable, C/D/I Right groin incision, C/D/I HR 89 BP 100/54 SpO2 99% RA (at rest); as low as 85% pre-op 94 kg, discharge 97 kg WBC 5.25 Hgb 7.9 HCT 23.7 Plt 92 Na 136 K 4.4 Cr 0.9 INR 1.99 CONSULTANTS: [facility], Dr. Sanchez Neurology, Dr. Estrella MEDICATIONS ON ADMISSION: Nebivolol 5 mg PO daily Eliquis 5 mg PO BID Motrin PRN Lovenox 10 mg SQ q12 (bridge) ALLERGIES/SENSITIVITIES: erythromycin base, penicillin DISCHARGE MEDICATIONS: STOP these medications: Lovenox 10 mg SQ q12 Eliquis 5 mg PO BID Nebivolol 5 mg PO daily (this may be restarted by Dr. Nicolas as an outpatient) Motrin PRN NEW medications: Coumadin 5 mg PO daily with goal INR 2-3 (titration per [facility]) Lasix 40 mg PO BID with Potassium Cl 20 mEq PO BID Aspirin 81 mg PO daily Roosevelt 5/325 mg tab PO q 6 hours PRN pain #20 tabs FOLLOW UP APPOINTMENTS: 1. CV surgery: with Dr. Rascon (covering for ) at [facility] on 08/16. 2. Cardiology: with Dr. Nicolas at [facility] within 4-6 weeks. Appointment to be established during surgical visit. 3. INR: [facility] 08/12 FOLLOW UP TESTING: CXR prior to surgical appointment.
[2018-08-09] MEDS: FUROSEMIDE 40 MG TAB PO SCH (09:47)
[2018-08-09] MEDS: ASPIRIN 81 MG CHEWABLE TAB PO SCH (09:47)
[2018-08-09] MEDS: PANTOPRAZOLE SODIUM 40 MG TAB PO SCH (09:47)
[2018-08-09] MEDS: POTASSIUM CL 20 MEQ TAB PO SCH (09:47)
[2018-08-09] MEDS: SENNOSIDES/DOCUSATE SODIUM TAB PO SCH (09:49)
[2018-08-09 12:04] VITALS: BP 100/54
[2018-08-09] MEDS ORDERED: WARFARIN SODIUM 5 MG TAB PO ONE (16:00)
--- NOTE | 2018-08-09 21:28 | ASMTLACE ---
LACE Length of stay for Answers: 4-6 days current admission Acuity / Level of Answers: Yes Care: Did the patient have an inpatient admission? Comorbidities - select Answers: Congestive heart failure all that apply Opioid dependence / Chronic pain Other Notes: HTN; Hep C # of Emergency department Answers: 0 visits in the last 6 months Score: 14 Date Signed: 08/09/2018 10:39 AM Electronically Signed By:Eugenie Mosquera RN
--- NOTE | 2018-08-09 21:28 | ASMTDCNOTE ---
Case Management Discharge Discharge Order Complete? Answers: Yes Patient to Obtain Answers: via Family Medications Discharge Comments Notes: 08/09/2018 Case Management Note PT recommends outpatient rehab. Case Management discharge plan: home with follow up as directed. Date Signed: 08/09/2018 10:39 AM Electronically Signed By:Eugenie Mosquera RN
== END 2018-08-09 13:51 | disposition home or self-care (01) | DRG 217 ==
LOC: FCATH 12:31 → F2W 15:43 → UNDOADMOB 17:58 → OBSVTOIN 17:58 → INTOOBSV 17:58 → F2W 17:58 → F2N 08-03 09:26 → F2W 08-04 10:45
PROVIDERS: ADMIT Internal Medicine Cardiovascular Disease; ATTEND Thoracic Surgery (Cardiothoracic Vascular Surgery)
PROC: B2111ZZ Fluoroscopy of Multiple Coronary Arteries using Low Osmolar Contrast (ICD-10-PCS; 2018-08-02)
PROC: 4A023N6 Measurement of Cardiac Sampling and Pressure, Right Heart, Percutaneous Approach (ICD-10-PCS; 2018-08-02)
PROC: 02QJ0ZZ Repair Tricuspid Valve, Open Approach (ICD-10-PCS; principal; 2018-08-03 07:15)
PROC: B246ZZ4 Ultrasonography of Right and Left Heart, Transesophageal (ICD-10-PCS; principal; 2018-08-03 07:15)
PROC: 02L70ZK Occlusion of Left Atrial Appendage, Open Approach (ICD-10-PCS; principal; 2018-08-03 07:15)
PROC: 02580ZZ Destruction of Conduction Mechanism, Open Approach (ICD-10-PCS; principal; 2018-08-03 07:15)
PROC: 5A1221Z Performance of Cardiac Output, Continuous (ICD-10-PCS; principal; 2018-08-03 07:15)
PROC: 02RF08Z Replacement of Aortic Valve with Zooplastic Tissue, Open Approach (ICD-10-PCS; principal; 2018-08-03 07:15)
PROC: 02R Heart and Great Vessels, Replacement (ICD-10-PCS; principal; 2018-08-03 07:15)
PROC: 30233R1 Transfusion of Nonautologous Platelets into Peripheral Vein, Percutaneous Approach (ICD-10-PCS; 2018-08-03 07:15)
PROC: 30233K1 Transfusion of Nonautologous Frozen Plasma into Peripheral Vein, Percutaneous Approach (ICD-10-PCS; 2018-08-03 07:15)
PROC: 30233N1 Transfusion of Nonautologous Red Blood Cells into Peripheral Vein, Percutaneous Approach (ICD-10-PCS; 2018-08-04)
DX: T82.2 Mechanical complication of coronary artery bypass graft and biological heart valve graft (principal); I27.29 Other secondary pulmonary hypertension; I35.1 Nonrheumatic aortic (valve) insufficiency; I36.1 Nonrheumatic tricuspid (valve) insufficiency; I48.1 Persistent atrial fibrillation; D62 Acute posthemorrhagic anemia; D69.59 Other secondary thrombocytopenia; G97.82 Other postprocedural complications and disorders of nervous system; R42 Dizziness and giddiness; H59.89 Other postprocedural complications and disorders of eye and adnexa, not elsewhere classified; H43.399 Other vitreous opacities, unspecified eye; I87.2 Venous insufficiency (chronic) (peripheral); G47.33 Obstructive sleep apnea (adult) (pediatric); Z86.19 Personal history of other infectious and parasitic diseases
CPT/HCPCS: 82435-PO; 82565-PO; 82947-PO; 84132-PO; 84295-PO; 84520-PO; 85014-PO; 86022-90; 97116-GP; 97161-GP; 97165-GO; 97530-GO; 97530-GP; 97535-GO; C1769; J0153; J0171; J0282; J0690; J1170; J1200; J1265; J1644; J1815; J1885; J1940; J2001; J2150; J2250; J2260; J2270; J2370; J2704; J2720; J2780; J2930; J3010; J3475; P9016; P9017; P9035; P9041; P9073; Q9967

== ENCOUNTER → 2018-08-16 | Outpatient (CLI) | payer OTHER | LOC: FIMAGING 08:19 | PROVIDERS: ATTEND Thoracic Surgery (Cardiothoracic Vascular Surgery) | DX: I51.7 Cardiomegaly (principal); Z86.79 Personal history of other diseases of the circulatory system; Z95.4 Presence of other heart-valve replacement; Z98.890 Other specified postprocedural states ==